=== PATIENT | male | born 1995 | race African-American/Black ===

== ENCOUNTER 2019-09-14 03:59 | Emergency (ER) | payer SELFPAY ==
[~2019-09-14] VITALS: Ht 170.2 cm; Wt 84.8 kg
== END 2019-09-14 04:22 | disposition home or self-care (01) ==
LOC: ER 04:00
DX: Z02.2 Encounter for examination for admission to residential institution (principal); F17.210 Nicotine dependence, cigarettes, uncomplicated; F12.10 Cannabis abuse, uncomplicated

== ENCOUNTER 2021-01-17 21:45 | Emergency (ER) | payer SELFPAY ==
[~2021-01-17] VITALS: Ht 172.7 cm; Wt 104.3 kg
[2021-01-17 22:00] VITALS: BP 144/97
== END 2021-01-18 03:24 | disposition left against medical advice (07) ==
LOC: ER 21:46
DX: K04.7 Periapical abscess without sinus (principal); Z53.21 Procedure and treatment not carried out due to patient leaving prior to being seen by health care provider